=== PATIENT | female | born 1995 | race Two or more races ===

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

== ENCOUNTER 2017-10-10 20:57 | Emergency (ER) | payer SELFPAY, OTHER | END 2017-10-10 23:03 | disposition home or self-care (01) | LOC: ER 20:57 | DX: S69.91XA Unspecified injury of right wrist, hand and finger(s), initial encounter (principal); X50.9XXA Other and unspecified overexertion or strenuous movements or postures, initial encounter; Y93.89 Activity, other specified; Y99.8 Other external cause status; Y92.89 Other specified places as the place of occurrence of the external cause | CPT/HCPCS: 73130; 99284 ==